=== PATIENT | female | born 1945 | race Caucasian/White ===

== ENCOUNTER 2021-03-09 12:00 | Observation (INO) | payer MEDICARE, OTHER ==
[~2021-03-09] VITALS: Ht 152.4 cm; Wt 72.6 kg
[2021-03-09 10:59] LABS: BASOPHILS % (AUTO) 0.4 % (0.0-5.0); EOSINOPHILS % (AUTO) 3.2 % (0.0-8.0); HEMATOCRIT 39.1 % (36-48); LYMPHOCYTES % (AUTO) 23.9 % (21.0-51.0); MEAN CORPUSCULAR HEMOGLOBIN 28.6 pg (27.0-33.0); MEAN CORPUSCULAR HGB CONC 32.2 g/dL (32.0-36.0); MEAN CORPUSCULAR VOLUME 88.7 fL (79-99); MONOCYTES % (AUTO) 7.8 % (3.0-13.0); NEUTROPHILS % (AUTO) 64.5 % (40.0-77.0); PLATELET COUNT (AUTO) 267 K/uL (130-400); RED BLOOD CELL COUNT(AUTO) 4.41 MIL/uL (4.00-5.50); RED CELL DISTRIBUTION WIDTH 13.2 % (11.0-15.5); WHITE BLOOD COUNT (AUTO) 9.8 K/uL (4.8-10.8)
[2021-03-09 11:24] LABS: POTASSIUM 4.2 mmol/L (3.5-5.1)
[2021-03-13 08:39] VITALS: BP 130/50
[2021-03-13] MEDS ORDERED: ATEN50TA PO (09:28)
[2021-03-13] MEDS ORDERED: LEVO112C4 PO (09:28)
[2021-03-13] MEDS ORDERED: ROSU10TA28 PO (09:28)
[2021-03-13] MEDS ORDERED: FEXO180T94 PO (09:28)
[2021-03-13] MEDS ORDERED: VALS1TAB77 PO (09:28)
[2021-03-14] VITALS (25 sets, daily range): BP systolic 97–152; BP diastolic 48–83
[2021-03-14] MEDS ORDERED: CEFAZOLIN SODIUM 1 GM VIAL ONE ×2 (06:16→06:52)
[2021-03-14] MEDS ORDERED: LACTATED RINGERS 1000ML 1,000 ML IV ONE (06:16)
[2021-03-14] MEDS ORDERED: LIDOCAINE PF 100MG/5ML (2%) SYRINGE 5ML ONE (06:45)
[2021-03-14] MEDS ORDERED: SUCCINYLCHOLINE CHLORIDE 20 MG/ML 10 ML VIAL ONE (06:45)
[2021-03-14] MEDS ORDERED: MIDAZOLAM HCL 1 MG/ML 2ML VIAL ONE (06:46)
[2021-03-14] MEDS ORDERED: PROPOFOL 10 MG/ML 20ML VIAL IV ONE (06:46)
[2021-03-14] MEDS ORDERED: GLYCOPYRROLATE 1 MG/5 ML SYRINGE ONE (06:46)
[2021-03-14] MEDS ORDERED: DEXAMETHASONE SOD PHOSPHATE 10MG/ML 1ML VIAL ONE ×2 (06:46→08:05)
[2021-03-14] MEDS ORDERED: NEOSTIGMINE 5MG/5ML SYR IV ONE (06:47)
[2021-03-14] MEDS ORDERED: ROCURONIUM 10MG/1ML SYR 10 MG/ML ML ONE ×2 (06:47→08:30)
[2021-03-14] MEDS ORDERED: ONDANSETRON 4MG INJ ONE (06:47)
[2021-03-14] MEDS ORDERED: FENTANYL CITRATE PF 50 MCG/1 ML 2ML VIAL ONE ×2 (06:48→09:35)
[2021-03-14] MEDS ORDERED: MORPHINE PF 100MG/10ML AMP IV ONE (06:51)
[2021-03-14] MEDS ORDERED: THROMBIN-JMI 20000 UNIT KIT TP ONE (06:52)
[2021-03-14] MEDS: BUPIVACAINE/EPI/PF 0.25% 30ML VIAL IJ SCH ×2 (07:00→08:10)
[2021-03-14] MEDS ORDERED: CEFAZOLIN SODIUM 1 GM VIAL IVP ONE (08:00)
[2021-03-14] MEDS ORDERED: HYDROCODONE/ACETAMINOPHEN 5/325 MG TAB PO PRN (11:00)
[2021-03-14] MEDS: LACTATED RINGERS 1000ML 1,000 ML IV SCH (11:00)
[2021-03-14] MEDS ORDERED: PROMETHAZINE HCL 25 MG/ML 1ML AMPULE IM PRN (11:00)
[2021-03-14] MEDS: DEXAMETHASONE SOD PHOSPHATE 4 MG/ML 1ML VIAL IVP SCH ×2 (11:00→16:34)
[2021-03-14] MEDS ORDERED: CEFAZOLIN SODIUM 1 GM VIAL IVP SCH (11:00)
[2021-03-14] MEDS ORDERED: MORPHINE 2 MG SYG IVP PRN (11:00)
[2021-03-14] MEDS ORDERED: 0.9%NACL 10ML VIAL IVP PRN (11:00)
[2021-03-14] MEDS ORDERED: ATORVASTATIN 20 MG TABLET PO SCH (21:00)
[2021-03-14] MEDS ORDERED: ATENOLOL 50 MG TABLET PO SCH (21:00)
[2021-03-15] MEDS: LACTATED RINGERS 1000ML 1,000 ML IV SCH (00:20)
[2021-03-15] MEDS: DEXAMETHASONE SOD PHOSPHATE 4 MG/ML 1ML VIAL IVP SCH ×2 (00:36→05:00)
[2021-03-15 04:04] VITALS: BP 117/73
[2021-03-15 07:30] VITALS: BP 105/48
[2021-03-15] MEDS ORDERED: CETIRIZINE HCL 5 MG TABLET PO SCH (09:00)
[2021-03-15] MEDS ORDERED: LEVOTHYROXINE 112 MCG TABLET PO SCH (09:00)
[2021-03-15] MEDS ORDERED: LOSARTAN/HYDROCHLOROTHIAZIDE 50-12.5MG TABLET PO SCH (09:00)
== END 2021-03-15 11:00 | disposition home or self-care (01) ==
LOC: DAHIP 03-14 05:58 → 4AH 03-14 10:21
PROVIDERS: ADMIT Neurological Surgery; ATTEND Neurological Surgery
DX: M48.062 Spinal stenosis, lumbar region with neurogenic claudication (principal); Z20.822 Contact with and (suspected) exposure to COVID-19; I35.0 Nonrheumatic aortic (valve) stenosis; E89.0 Postprocedural hypothyroidism; Z90.710 Acquired absence of both cervix and uterus; Z96.659 Presence of unspecified artificial knee joint
CPT/HCPCS: 36415; 63047; 63048 ×2; 72020; 80048; 85025; 87635; 96374; 96375; 96376; A4215; A4221; A4222; A4223; A4344; A4510; A4600; A4649 ×3; A4663; A6260; G0378 ×23; G0379; J0330; J0690 ×3; J1100 ×4; J2001; J2250; J2274; J2405; J2704; J2710; J3010 ×2; J3490 ×2; J7030; J7120 ×3